=== PATIENT | female | born 1990 | race Caucasian/White ===

== ENCOUNTER 2025-04-28 10:13 | Outpatient (CLI) | payer BC, SELFPAY ==
--- OUTSIDE RECORDS SUMMARY | 2025-04-28 10:45 | XMS_ITS | Clinical Summary ---
Author Organization [facility] Address [address] [place] [address] Care Team Providers Care Nipping Machine Operator Name Role Phone Unavailable Primary Care Provider Unavailabl e Source Comments [facility],non-owned Affiliates and Associated Physician Practices is amultiple site organization consisting of ambulatory clinics and hospital sitesin [place], [place], [place] and [place]. This disclosure is being madepursuant to the Care Everywhere program and may not contain all information available regarding this patient. Last updated 18.[facility] Allergies No known active allergies Encounters Date Type Department Care Team Description 04/11/2025 11:15 AM CDT - 04/11/2025 11:59 PM CDT Hospital Encounter [facility] [address] [place] [id number] Alexa Tran MD Discharge Disposition: Home or Self Care 03/14/2025 11:15 AM CDT - 03/14/2025 11:59 PM CDT Hospital Encounter [facility] [address] [place] [id number] Ayesha Mcclure MD Discharge Disposition: Home or Self Care 02/14/2025 9:45 AM CDT - 02/14/2025 11:59 PM CDT Hospital Encounter [facility] [address] [place] [id number] Layla Zamora MD DIVORCE MEDIATOR Discharge Disposition: Home or Self Care from Last 3 Months Social History Tobacco Use Types Packs/Day Years Used Date Smoking Tobacco: Never Assessed Estimated Date of Delivery Comme nts Yes 07/02/2025 Based on last me nstrual period of 09/25/2024 Sex and Gender Information Value Date Recorded Sex Assigned at Not on file Legal Sex Female 11:03 AM CDT Gender Identity Not on file Sexual Orientation Not on file Plan of Treatment Health Maintenance Due Date Last Done Comments HIV SCREENING 2005 HEPATITIS C SCREENING 04/13/2008 DTAP/TDAP/TD VACCINES (1 - Tdap) 2009 HEPATITIS B VACCINE (1 of 3 - 19+ 3-dose series) 2009 PAP SMEAR 2011 HPV VACCINE (1 - 3-dose SCDM series) 2017 COVID-19 VACCINE ( - 2023-2 5 season) 2024 DEPRESSION SCREENING 08/25/2024 OB-ONE HOUR GLUCOSE 03/26/2025 OB-TDAP CURRENT 04/02/20252021, 10/03/2013 OB-RHOGAM INJECTION 04/09/2025 INFLUENZA VACCINE (#1) 2025 Respiratory Syncytial Virus (RSV) Vaccine Pt: or over 60 yrs (1 - Risk 1-dose series) 05/07/2025 ZOSTER VACCINE (1 of 2) 2040 HIB VACCINE Aged Out No longer eligi ble based on patient's age to complete this topic MENINGOCOCCAL (Group B) VACCINE SHARED DECISION-MAKING Aged Out No longer eligible based on patient's age to complete this topic MENINGOCOCCAL GROUPS A/C/Y/W VACCINE Aged Out No longer eligible b ased on patient's age to complete this topic PNEUMOCOCCAL VACCINE Aged Out No long er eligible based on patient's age to complete this topic Procedures Procedure Name Priority Date/Time Associated Diagnosis Comments SONOGRAM - COMPLETE Routine 04/11/2025 1 1:26 AM CDT Fourth (HCC) 28 weeks gestation of (HCC) Encounter for follow-up ultrasound of anatomy ([facility]) Encounter for ultrasound to assess growth ([facility]) SONOGRAM - COMPLETE Routine 03/14/2025 1 1:25 AM CDT Fourth (HCC) 24 weeks gestation of (HCC) Encounter for follow-up ultrasound of anatomy (HCC) Encounter for ultrasound to assess growth (HCC) SONOGRAM - COMPLETE Routine 02/14/2025 9 :52 AM CDT Encounter for anatomic survey (HCC) with 20 completed weeks gestation (HCC) Fourth (HCC) from Last 3 Months Results * Sonogram - Complete (04/11/2025 11:26 AM CDT) Only the most recent of3 resultswithin the time period is included. Linked Results Indication ======== Screening Follow-Up Incomplete anatomic survey Advanced maternal age (AMA), multigravida At time of delivery History ====== OB History 4. Para 3 Maternal Assessment Physical Exam Height 173 cm, 5 ft 8 in. Weight 76 kg, 167 lb. Initial weight 66 kg, 146 lb. BMI 25.39 kg/m . Initial BMI 22.20 kg/m . Weight gain 10 kg, 21 lb Method ====== Transabdominal ultrasound. View: Sufficient ========= Teixeira . Number of fetuses: 1 Dating ====== Date Details Gest. age ELLA LMP 09/25/2024 28 w + 2 d 07/02/2025 Stated ELLA 28 w + 2 d 07/02/2025 U/S 04/11/2025 based upon AC, BPD, Femur, HC 29 w + 4 d 06/23/2025 Assigned dating based on the LMP, selected on 02/14/2025 28 w + 2 d 07/02/2025 General Evaluation Cardiac activity present. FHR 145 bpm. Presentation: cephalic Placenta: Placental site: posterior Umbilical cord: 3-vessel cord and normal placental cord insertion site were documented previously Amniotic fluid: Amount of AF: normal. CHET 16.8 cm. Q1 4.8 cm, Q2 4.2 cm, Q3 3.5 cm, Q4 4.4 cm Biometry BPD 74.5 mm 29w 6d 85% Hadlock HC 276.1 mm 30w 1d 77% Hadlock AC 253.7 mm 29w 4d 80% Hadlock Femur 53.7 mm 28w 3d 40% Hadlock Humerus 50.1 mm 29w 2d 74% Bertrand HC / AC 1.09 Weight Calculation: EFW 1,371 g 75% Hadlock EFW (lb,oz) 3 lb 0 oz EFW by Hadlock (HC-AC-FL) Growth Overview Exam date GA BPD (mm) HC (mm) AC (mm) FL (mm) HL (mm) EFW (g) 02/14/2025 20w 2d 49.2 74% 185.1 68% 157.7 65% 34.1 58% 32.9 80% 380 74% 03/14/2025 24w 2d 63.2 85% 234.1 74% 205.7 69% 42.5 25% 41.1 59% 729 61% 04/11/2025 28w 2d 74.5 85% 276.1 77% 253.7 80% 53.7 40% 50.1 74% 1371 75% Anatomy The following structures appear normal: Heart / Thorax 4-chamber view. LVOT view. Interventricular septum. Abdomen Cord insertion. Stomach. Kidneys. Bladder. The following structures were documented previously: Head / Neck Cranium. Lateral ventricles. Choroid plexus. Midline falx. Cavum septi pellucidi. Cerebellum. Cisterna magna. Thalami. Nuchal fold. Face Lips. Profile. Nose. Nasal bone. Orbits. Heart / Thorax RVOT view. 3-vessel view. 7-hivzcz-pnbpqdp view. Situs. Aortic arch view. Bicaval view. Ductal arch view. Great vessels. Right lung. Left lung. Diaphragm. Abdomen Bowel. Genitals. Spine Cervical spine. Thoracic spine. Lumbar spine. Sacral spine. Extremities / Skeleton Arms. Hands. Legs. Feet. sex: female. Impression ========= 1) Teixeira gestation, 28w2d 2) Biometry is consistent with appropriate growth 3) The amniotic fluid volume is within normal limits 4) No abnormalities have been detected on the, now complete, anatomic survey Comment ======== ultrasound alone cannot detect all structural, genetic, or functional , placental, or maternal abnormalities Follow-up ======== Follow-up ultrasound only if clinically indicated Coding ====== Diagnoses O09.523: Supervision of elderly multigravida Z36.2: Encounter for other screening follow-up Procedures 76987: US Preg [facility] Anatom[facility] Region Laterality Modality Other 04/11/2025 11:2 6 AM CDT Edna Rodriguez MD [facility] ORDERABLES Edited Result - Final from Last 3 Months Insurance [facility]
--- OUTSIDE RECORDS SUMMARY | 2025-04-28 10:45 | XMS_ITS | Clinical Summary ---
Author Organization [facility] at the [facility] Address [address] [place] [address] Care Team Providers Care Import Customs Clearing Agent Name Role Phone No, Physician Primary Care Provider [phone] Allergies Active Allergy Reactions Criticality Noted Date Comments Cat Dander Other (See comments) Low 03/29/2022 Dog Dander Other (See comments) Low 03/29/2022 House Dust Other (See comments) Low 03/29/2022 Mold Other (See comments) Low 03/29/2022 Medications vit 98-zglx-nxraa-d quintana 27mg iron- 800 mcg-250 mg capsule Take by mouth Active docusate sodium (COLACE) 100 mg capsuleIndicati ons:constipatio n,Stool Softener Take 1 capsule (100 mg total) by mouth 2 (two) times a day 30 capsule 1 05/05/2022 Active ibuprofen (ADVIL,MOTRIN) 600 mg tabletIndicatio ns:Pain Take 1 tablet (600 mg total) by mouth every 6 (six) hours as needed for pain 30 tablet 1 05/05/2022 Active acetaminophen (TylenoL) 325 mg tablet Take 2 tablets (650 mg total) by mouth every 6 (six) hours as needed for pain 30 tablet 1 05/05/2022 Active sertraline (ZOLOFT) 25 mg tablet Take 1 tablet (25 mg total) by mouth daily 30 tablet 2 05/13/2023 Active Active Problems Problem Noted Date Diagnosed Date care following vaginal delivery 05/04 Overview (05/05/2022): 05/04/22, PPD#1 (BD): Hx of depression - on zoloft 25mg daily; mood currently stable VSS - Anemia: QBL: Recent Labs Lab Units 05/04/22 0437 HEMOGLOBIN g/dL 10.3* HEMATOCRIT % 29.7* ; Currently asymptomatic. On Iron therapy. Tolerating PO. Voiding spontaneously. Ambulating. Pain: Controlled with PO pain medications Fundus firm Breast Feeding Baby doing well - DVT Prophylaxis: SCD's in place; Encourage early ambulation Disposition: Continue routine care 05/05/22, PPD#2 (BD): Hx of depression - started on zoloft 25mg daily; mood currently stable VSS - Anemia: QBL: Recent Labs Lab Units 05/04/22 0437 HEMOGLOBIN g/dL 10.3* HEMATOCRIT % 29.7* ; Currently asymptomatic. On Iron therapy. Tolerating PO. Voiding spontaneously. Ambulating. Pain: Controlled with PO pain medications Fundus firm Breast Feeding Baby doing well - DVT Prophylaxis: SCD's in place; Encourage early ambulation Disposition: Continue routine care, anticipate D/C home today Normal labor and delivery 05/03/2022 Overview (05/05/2022): Delivered shortly after admission, see delivery note. GBS +, no time for prophylaxis Post depression 05/03/2022 Positive GBS test 04/15/2022 Supervision of other normal , antepartu m 02/14/2022 History of alcohol abuse 02/14/2022 Immunizations Immunization Administration Dates Next Due Tdap 02/27/2022 Medical History Medical History Date Comments HPV (human papilloma virus) infection Abnormal Pap smear of cervix Asthma Post depression Family History Medical History Relation Name Comments Breast cancer Mother's Sister Ovarian cancer Neg Hx Uterine cancer Neg Hx Relation Name Status Comments Mother Alive Mother's Sister Social History Tobacco Use Types Packs/Day Years Used Date Smoking Tobacco: Never Tobacco Cessation:Counseling Given: Not Answered AUDIT-C Answer Date Recorded Q1: How often do you have a drink containing alc ohol? Never 05/03/2022 Average Number of Drinks Not on file 022 Frequency of Binge Drinking Not on file 04/2022 [place] Depression Scale Answer Date Recorded [place] Depression Scale Total 2 05/04/2022 The thought of harming myself has occurred to me . Never 05/04/2022 Comments No Sex and Gender Information Value Date Recorded Sex Assigned at Not on file Legal Sex Female 9:21 AM CDT Gender Identity Not on file Sexual Orientation Not on file Obstetrics History Para Term AB IAB SAB Ectopic Multiple Livin g Live Births 3 3 3 0 3 3 Date Outcome GA Total Labor Labor/2nd/3rd Weight Sex Type Anes PTL Adenike A1 A5 Name Clin 2013 Term 38w 4d 3.062 kg (6 lb 12 oz) F Vag-S pont Epidur al N Livin g Complications:None Delivery Location:[facility] 2015 Term 38w 5d 3.572 kg (7 lb 14 oz) F Vag-S pont Epidur al N Livin g Complications:None Delivery Location:[facility] 2021 Term 38w 5d 3h 35m 3h 05m/0h 23m/0h 07m 3.37 kg (7 lb 6.9 oz) F Vag-S pont None N Livin g 8 9 JOY ,GIRL LILLIAM EA Obernu efleida n, Alicia N., CNM Complications:Precipitous La bor (<3 hours) Delivery Location:[facility] ([facility]) Last Filed Vital Signs Vital Sign Reading Time Taken Comments Blood Pressure 121/69 05/05/2022 7:35 AM CDT Pulse 63 05/05/2022 7:35 AM CDT Temperature 36.6 C (97.9 F) 05/05/2022 7:35 AM CDT Respiratory Rate 18 05/05/2022 4:49 AM CDT Oxygen Saturation 97% 05/05/2022 7:35 AM CDT Inhaled Oxygen Concentration - - Weight 81.6 kg (180 lb) 05/02/2022 9:14 AM CDT Height 170.2 cm (5' 7.01) 05/02/2022 9:14 AM CD T Body Mass Index 28.19 05/02/2022 9:14 AM CDT Plan of Treatment Health Maintenance Due Date Last Done Comments Cervical Cancer Screening 1990 Hepatitis C Screening 1990 Varicella Vaccines (1 of 2 - 13+ 2-dose series) 2003 Hepatitis B Screening 2008 Regular Well Visit/Exam 18-64 2008 HPV Vaccines (1 - 3-dose SCD M series) 2017 Depression Screening 05/04/2023 05/04/2022 Influenza Vaccine (#1) 2025 DTaP/Tdap/Td Vaccine (2 - Td or Tdap) 02/28/2032 02/27/2022 Pneumococcal vaccine <65 Aged Out No longer eligible based on patient's age to complete this topic Insurance [employer] [place] [employer] [place] Advance Directives For more information, please contact: [phone] * Full Code (Latest Code Status on File) Date Activated Date Inactivated Comments 05/03/2022 10:29 AM 05/05/2022 3:42 PM * Full Code Date Activated Date Inactivated Comments 05/03/2022 8:11 AM 05/03/2022 10:29 AM Full CPR in c ase of cardiopulmonary arrest Care Teams Import Customs Clearing Agent Relationship Specialty Start Date End Date No, Physician PCP - General 01/14/22
[2025-04-28 12:22] LABS: Hematocrit 30.9 % (37.0-47.0); Hemoglobin 10.6 g/dL (12.0-15.0); Mean Corpuscular HGB Conc 34.3 g/dl (32-36); Mean Corpuscular Hemoglobin 30.7 pg (26-34); Mean Corpuscular Volume 89.6 fl (80-100); Platelet Count Result 236 k/mm3 (150-375); Red Blood Count 3.45 M/mm3 (4.2-5.4); White Blood Count 7.0 K/mm3 (4.5-10.0)
[2025-04-28 12:46] LABS: Glucose 1 Hour PP 50gm Dose 121 mg/dL
[2025-04-28 13:15] LABS: Syphilis IgG/IgM Antibody Non-Reactive (Nonreactive)
[2025-04-28 13:27] LABS: HIV 1/2 Ab P24 Ag Result Negative (Negative)
== END 2025-04-28 10:14 | disposition home or self-care (01) ==
LOC: ANHLAB 10:16
PROVIDERS: PCP Physician Assistant; Visit Provider Student in an Organized Health Care Education/Training Program
DX: Z34.90 Encounter for supervision of normal pregnancy, unspecified, unspecified trimester (principal); Z3A.00 Weeks of gestation of pregnancy not specified
CPT/HCPCS: 36415; 82947; 85027; 86593; 86703; G0432

== ENCOUNTER 2025-06-24 10:22 | Inpatient (IN) | payer BC, SELFPAY ==
[2025-06-24] VITALS (45 sets, daily range): BP systolic 108–138; BP diastolic 62–98; PULSE 62–148; RESP 16–18; TEMP 36.7–37.2; O2SAT 88–100; BMI 28.6
--- OUTSIDE RECORDS SUMMARY | 2025-06-24 11:05 | XMS_ITS | Clinical Summary ---
Author Organization [facility] at the [facility] Address [address] [place] [address] Care Team Providers Care Entry Level Web Developer Name Role Phone No, Physician Primary Care Provider [phone] Allergies Active Allergy Reactions Criticality Noted Date Comments Cat Dander Other (See comments) Low 03/29/2022 Dog Dander Other (See comments) Low 03/29/2022 House Dust Other (See comments) Low 03/29/2022 Mold Other (See comments) Low 03/29/2022 Medications vit 83-kwiq-wjppg-d quintana 27mg iron- 800 mcg-250 mg capsule [...] of Binge Drinking Not on file 04/2022 [place] Depression Scale Answer Date Recorded [place] Depression Scale Total 2 05/04/2022 The thought [...] Epidur al N Livin g Complications:None Delivery Location:[facility] 2015 Term 38w 5d 3.572 kg (7 lb 14 oz) F Vag-S pont Epidur al N Livin g Complications:None Delivery Location:[facility] 2021 Term 38w 5d 3h 35m 3h 05m/0h 23m/0h 07m 3.37 kg (7 lb 6.9 oz) F Vag-S pont None N Livin g 8 9 JOY ,GOGO boone n, Alicia Kinney, CNM Complications:Precipitous La bor (<3 hours) Delivery Location:[facility] ([facility]) Last Filed Vital Signs Vital [...] 05/02/2022 9:14 AM CDT Plan of Treatment Not on file Insurance [employer] [place] [employer] [place] Advance Directives For more information, please contact: [phone] * Full Code (Latest Code Status on File) Date Activated Date Inactivated Comments 05/03/2022 10:29 AM 05/05/2022 3:42 PM * Full Code Date Activated Date Inactivated Comments 05/03/2022 8:11 AM 05/03/2022 10:29 AM Full CPR in c ase of cardiopulmonary arrest Care Teams Entry Level Web Developer Relationship Specialty Start Date End Date No, Physician PCP - General 01/14/22
--- OUTSIDE RECORDS SUMMARY | 2025-06-24 11:05 | XMS_ITS | Data Portability ---
Author Organization [facility] Pedro Douglas Address [address] [place] [address] Care Team Providers Care Target Trimmer Name Role Phone NELGARTH HAGAN Primary Care Provider Assessment No assessment recorded. Plan of Treatment Reminders Order Date Submit Date Provider Last Modified By Organization Details Last Modified Time Details Appointments None recorded. Lab None recorded. Referral None recorded. Procedures None recorded. Surgeries None recorded. Imaging None recorded. Medication Orders sertraline 25 mg tablet 2023 024 [facility] #[id number], [address] [place], [address], 12:26:30 Patient TargetsNo targets recorded. Patient Instructions Encounter Date Encounter Id Patient Instructions Last Modified By Organization Details Last Modified Time 12/02/2023 [id number] depression after childbirth: care instructions jnanney Not available 12/02/2023 12:26:26 stress in parent s of infants: care instructions jnanney Not available 12/02/2023 12:26:26 Reason for Referral None Reported. Results Created Date Observation Date Name Description Value Unit Range Abnormal Flag Note LastModifiedBy Organization Detail LastModifiedTime Result Notes None recorded. Problems No Known Problems Medical Equipment None Reported. Allergies No known drug allergies Medications Name Sig Start Date Stop Date Status Note LastModified by Organization Details LastModified Time sertraline 25 mg tablet TAKE 1 TABLET BY MOUTH EVERY DAY 025 active Not Available Not Available Not Avai lable Vitals Date Recorded Body weight Body mass index (BMI) Body height Systolic And Diastolic Provider Name and Address Organization Details Last Updated DateTime 12/02/2023 18848.81 g 24.5 kg/m2 170.18 cm 96/68 mm[Hg] Sarah Ayon [place] [facility] 12/02/2023 12:16:06 Date Recorded Body height Body mass index (BMI) Body weight Oxygen saturation Oxygen saturation in Arterial blood by Pulse oximetry Heart rate Systolic And Diastolic Provider Name and Address Organization Details Last Updated DateTime 170.18 cm 23.8 kg/m2 16497.0 4 g 99 % 99 % 81 /min 118/68 mm[Hg] Sarah Ayon MA [facility] 11:04:28 Social History Question Answer Notes LastModified by Organizat ion Details LastModified Time Tobacco Smoking Status Never Smoker Sarah Ayon MA [facility], [facility] 12/02/2023 12:12:46 Are You Blind Or Do You Have Difficulty Seeing? No Information not available 12/02/2023 What Is Your Level Of Caffeine Consumption? Occasional Information not available 12/02/2023 Are You Deaf Or Do You Have Serious Difficulty Hearing? No Information not available 12/02/2023 What Type Of Diet Are You Following? REGULAR Information not available 12/02/2023 What Was The Date Of Your Most Recent Tobacco Screening? 12/16/2023 Information not available 12/16/2023 How Many Children Do You Have? 3 Information not available 12/02/2023 What Is Your Relationship Status? Information not available 12/02/2023 Do You Use Your Seat Belt Or Car Seat Routinely? Yes Information not available 12/02/2023 Do You Have Smoke And Carbon Monoxide Detectors In Your Home? Yes Information not available 12/02/2023 Are You Passively Exposed To Smoke? No Information no t available 12/02/2023 Do You Use Sunscreen Routinely? Yes Information not available 12/02/2023 Has Tobacco Cessation Counseling Been Provided? No Information not available 12/02/2023 Sex: Female Functional Status Question Answer Note LastModified by Organizat ion Details LastModified Time Do you use any illicit or recreational drugs? No Information not available 12/02/2023 Do you or have you ever used any other forms of tobacco or nicotine? No Information not available 12/02/2023 What is your level of alcohol consumption? None Information not available 12/02/2023 Are you currently employed? No Stay at home Mom Information not available 12/02/2023 What is your exercise level? Occasional Information not available 12/02/2023 Mental Status Question Answer Note LastModified by Organization D etails LastModified Time Do you feel stressed (tense, restless, nervous, or anxious, or unable to sleep at night)? [id number] Information not available 12/02/2023 Family History Nothing Reported. Medical History Condition Response Coronary Artery Disease N Other N Atrial Fibrillation N High Blood Pressure N Thyroid Problems N Kidney or Bladder Problems N Depression N COPD N Blood Clots N GI Problems N Skin Problems N Eating Disorder N Anemia N Heart Attack (PA) N Diabetes N Anxiety Disorder N Muscle, Joint, or Bone Problems N Seizures/Epilepsy N Arthritis N Acid Reflux (GERD) N Cancer N Stroke N Allergies N Asthma N ADHD N Substance Abuse N High Cholesterol N Hepatitis N Liver Disease N Schizophrenia N Headaches N Osteoporosis N Heart Failure N Gynecological History Statement/Question Response Date of LMP 11/01/2023 Obstetrics History GPAL:G 3 P 0 0 0 0 Immunizations Vaccine Type Date Status Note Provider Nam e and Address Organization Details Recorded Time Tdap 02/27/2022 T[place], [place] 2025 12:35:19 Tdap 04/16/2025 T[place] 2025 12:36:47 Respiratory syncytial virus (RSV) MAB, unspecified 06/08/2025 TORI [place] 06/15/2025 09:46:00 Past Encounters Encounter ID Performer Location Encounter Start Date Encounter Closed Date Diagnosis/Indication Diagnosis SNOMED-CT Code Diagnosis ICD10 Code Diagnosis IMO Codes Diagnosis Note [id number] Garth Bauer PA-C [facility] [address] [place] [address] 12/02/2023 12:02:39 12/11/2023 16:19:53 depression 79351148 F53.0 [id number] Kiran Arevalo MD [facility] [address] [place] [address] 12/16/2023 10:49:06 12/25/2023 11:37:47 Mixed anxiety and depressive disorder 032154543 F41.8 follow up 6 month Health Concerns Section Related Observation LastModified by Organization Detai ls LastModified Time None Recorded Concern Status LastModified by Organization Details LastModified Time None Recorded Advance Directives Directive None Recorded Payers Insurance Date Sequence Insurance Name Policy Number Policy Hanna Covered Member ID Hanna Member ID Guarantor Name 06/11/2024 1 [place] [id number] Ethan Retana Dixon [id number] Radha Dixon Notes Date Note Type Note Provider Name and Address Organization Details Recorded Time 12/02/2023 text/html ROS as noted in the HPI new patient..hx of post ..was on meds decided to try without...not doing great...sertralin e...describes extremes...just moved in from [place]... Garth Bauer PA-C Attn: [address] [place], [address], [facility] 12/02/2023 12:27:48 12/16/2023 text/html ROS as noted in the HPI sleeping well feels great depression resolving Garth Bauer PA-C Attn: [address] [place], [address], [facility] 12/16/2023 11:33:36 OBGyn Episode Ob Episode Information Episode Created Date Number of Fetuses Patient Bloodtype Patient rh Status Prepregnancy Weight lbs Domestic Partner Domestic Partner Phone Father Name Metal Spinner Status 12/02/19 24 1 CLOSED Fetus Data First Name Last Name Admitted to NICU Weight (g) Sex Living Outcome Pediatric Complications Fetus ID Race Codes Race Delivery Type Full Term [id number] Charly Calculation Initial Charly Date Initial Exam Date Initial Exam Provider Initial Ultrasound Date Last Menstrual Period Date Ultra Sound Weeks Gestation 0 Eighteen To Twenty Week Charly Update Ultra Sound Date Fundal Height At Umbil Quickening Date Ultra Sound Latest Weeks Gestation Final Charly Confirmed By Final Charly Confirmed Date Final Charly Date Ultra Sound Latest Days Gestation 0 0 Menstrual History Last Menstrual Date Menses Monthly On Bcp Conception Prior Menses Frequency Hcg Plus Date Menarche Onset Age Delivery Information Delivery Date Delivery Type Labor Anesthesia Weeks Gestation Incision Type Labor Labor Length Hrs Delivered By Post Complications Tubal Sterilization Discharge Date Comments 4 Discharge Information Feeding Method Contraceptive Method Maternal HG B and HCT Levels Ob Episode Information Episode Created Date Number of Fetuses Patient Bloodtype Patient rh Status Prepregnancy Weight lbs Domestic Partner Domestic Partner Phone Father Name Metal Spinner Status 12/02/19 24 1 CLOSED Fetus Data First Name Last Name Admitted to NICU Weight (g) Sex Living Outcome Pediatric Complications Fetus ID Race Codes Race Delivery Type Full Term [id number] Charly Calculation Initial Charly Date Initial Exam Date Initial Exam Provider Initial Ultrasound Date Last Menstrual Period Date Ultra Sound Weeks Gestation 0 Eighteen To Twenty Week Charly Update Ultra Sound Date Fundal Height At Umbil Quickening Date Ultra Sound Latest Weeks Gestation Final Charly Confirmed By Final Charly Confirmed Date Final Charly Date Ultra Sound Latest Days Gestation 0 0 Menstrual History Last Menstrual Date Menses Monthly On Bcp Conception Prior Menses Frequency Hcg Plus Date Menarche Onset Age Delivery Information Delivery Date Delivery Type Labor Anesthesia Weeks Gestation Incision Type Labor Labor Length Hrs Delivered By Post Complications Tubal Sterilization Discharge Date Comments 2 Discharge Information Feeding Method Contraceptive Method Maternal HG B and HCT Levels Ob Episode Information Episode Created Date Number of Fetuses Patient Bloodtype Patient rh Status Prepregnancy Weight lbs Domestic Partner Domestic Partner Phone Father Name Metal Spinner Status 12/02/19 24 1 CLOSED Fetus Data First Name Last Name Admitted to NICU Weight (g) Sex Living Outcome Pediatric Complications Fetus ID Race Codes Race Delivery Type Full Term [id number] Charly Calculation Initial Charly Date Initial Exam Date Initial Exam Provider Initial Ultrasound Date Last Menstrual Period Date Ultra Sound Weeks Gestation 0 Eighteen To Twenty Week Charly Update Ultra Sound Date Fundal Height At Umbil Quickening Date Ultra Sound Latest Weeks Gestation Final Charly Confirmed By Final Charly Confirmed Date Final Charly Date Ultra Sound Latest Days Gestation 0 0 Menstrual History Last Menstrual Date Menses Monthly On Bcp Conception Prior Menses Frequency Hcg Plus Date Menarche Onset Age Delivery Information Delivery Date Delivery Type Labor Anesthesia Weeks Gestation Incision Type Labor Labor Length Hrs Delivered By Post Complications Tubal Sterilization Discharge Date Comments 6 Discharge Information Feeding Method Contraceptive Method Maternal HG B and HCT Levels
[2025-06-24 11:08] LABS: Hematocrit 32.5 % (37.0-47.0); Hemoglobin 11.4 g/dL (12.0-15.0); Immature Granulocyte Percent A 0.7 % (0-0.5); Lymphocytes Absolute Auto 1.26 K/mm3 (0.9-3.2); Mean Corpuscular HGB Conc 35.1 g/dl (32-36); Mean Corpuscular Hemoglobin 30.8 pg (26-34); Mean Corpuscular Volume 87.8 fl (80-100); Nucleated Red Blood Cells Absolute Auto 0.000 K/mm3 (0.0-0.012); Nucleated Red Blood Cells Perc 0.0 % (0.0-0.2); Platelet Count Result 232 k/mm3 (150-375); Red Blood Count 3.70 M/mm3 (4.2-5.4); White Blood Count 5.9 K/mm3 (4.5-10.0)
--- NOTE | 2025-06-24 11:27 | LDADM ---
This patient, Radha Metcalf, was admitted to Labor/Delivery/Recovery 107 on 06/24/25 at 10:22. Plans for labor, pain management and were discussed with patient. Patient/family oriented to hospital policies and general routines including ID bracelet, bed and alarms, visiting hours, pain management, procedures, bathroom and other care routines, personal items, smoking policy, room service/diet and guest tray routines, security routines, and visiting hours. Patient/Family are encouraged to report perceived risks to care and to ask questions if they do not understand what they are told or what they should do. See OBIX for further documentation.
[2025-06-24] MEDS: OXYTOCIN 30 UNITS/NS 500 ML 30 UNITS/500 ML BAG 999 UNITS IV CONT (12:30)
--- NOTE | 2025-06-24 12:38 | WPDHPUPDATE1 ---
History and Physical Update Update Date/Time: 06/24/25 12:38 35 yo who presents at 38w6d after SROM and in labor. History and Physical has been reviewed, including an updated exam of the patient. There are NO changes in the patient's condition. Risks, benefits, and alternatives have been discussed and questions answered. Patient agrees to proceed with procedure. A/P: admit to L&D routine admission orders Rh+ GBS neg continuous EFM cvx 6cm expectant managemetn
--- NOTE | 2025-06-24 12:40 | PM.OBPRVD ---
OB - Vaginal Delivery Note Procedure Delivery date: 06/24/25 Induction method: None Delivery monitor: External FHT and External Uterine Route of delivery: Episiotomy description: None Laceration Description: None Specimen: No Quantitative Blood Loss (ml): 200 Anesthesia type: None Disposition: Floor Complications: No immediate complications Narrative: Patient pushed in hands and knees position for a spontaneous vaginal delivery. The fetus was delivered atraumatically. The cord was clamped and cut after 1 minute of life. The cord was double clamped and cut and a segment of cord was collected for cord gases. Cord blood was collected for blood type and Coomb's testing. The placenta delivered spontaneously and was noted to be intact. The perineum was inspected and noted to be intact. The fundus was noted to be firm and good hemostasis was noted. The mom and infant were stable in the delivery room. Baby Date of : 06/24/25 Time of : 12:20 Gestational Age by Date: 38 Infant gender: Ambiguous Weight (pounds): 8 Weight (ounces): 9 presentation: vertex position: Right Occiput Anterior Placenta delivery description: Spontaneous Cord Vessel Description: 3 Vessels score one minute: 8 score five minutes: 9
[2025-06-24] MEDS: OXYTOCIN 30 UNITS/NS 500 ML 30 UNITS/500 ML BAG 125 UNITS IV CONT (13:02)
[2025-06-24 13:05] LABS: Syphilis IgG/IgM Antibody Non-Reactive (Nonreactive)
[2025-06-24] MEDS: IBUPROFEN 600 MG TABLET PO (13:22)
--- NOTE | 2025-06-24 15:00 | OBPPTRN ---
Patient transferred to post room # 291 via wheelchair. Support person present. Oriented to unit, room, information board, rooming in, admission packet and security measures. Patient verbalizes understanding.
[2025-06-25] MEDS: IBUPROFEN 600 MG TABLET PO (00:15)
[2025-06-25 04:15] VITALS: BP 122/77; PULSE 80; RESP 18; TEMP 36.6; O2SAT 99
[2025-06-25 05:06] LABS: Hematocrit 28.4 % (37.0-47.0); Hemoglobin 9.9 g/dL (12.0-15.0)
[2025-06-25 08:50] VITALS: BP 110/69; PULSE 73; RESP 16; TEMP 36.9; O2SAT 97
[2025-06-25] MEDS: SERTRALINE HCL 25 MG TABLET PO (08:54)
[2025-06-25] MEDS: MULTIVIT/MIN/PREN/FOL AC/IRON TABLET 1 TAB PO (08:54)
[2025-06-25] MEDS: DOCUSATE SODIUM 100 MG CAPSULE PO (08:55)
--- NOTE | 2025-06-25 09:06 | P.PNOB_ITS ---
OB - PN: Subj Subjective Date/time seen: 06/25/25 09:06 Patient comments: pain well controlled, tolerating diet and other (Decreasing lochia.) baby status: doing well and nursing well [place] feeding status: exclusively breast feeding OB - PN: Obj Data Labs 06/25/25 04:14 Labs: Laboratory Results - last 24 hr 06/24/25 06/25/25 10:50 04:14 WBC 5.9 RBC 3.70 L Hgb 11.4 L 9.9 L Hct 32.5 L 28.4 L MCV 87.8 MCH 30.8 MCHC 35.1 RDW 13.1 Plt Count 232 MPV 9.1 Immature Gran % (Auto) 0.7 H Neut % (Auto) 68.2 Lymph % (Auto) 21.5 [place] % (Auto) 7.0 Eos % (Auto) 1.9 Baso % (Auto) 0.7 Lymph # (Auto) 1.26 [place] # (Auto) 0.4 Eos # (Auto) 0.1 Baso # (Auto) 0.0 Abs Immat Gran (auto) 0.04 H Absolute Neuts (auto) 4.0 Absolute Nucleated RBC 0.000 Nucleated RBC % 0.0 Syphilis IgG/IgM Ab Non-reactive Blood Type A Positive Antibody Screen Negative OB - PN A/P Plan day: 1 Plan: discharge home Comments: Patient doing well. She requested discharge to home. Time Spent With Patient Time: Total time spent is greater than 50% in coordination of care (as documented) at patient's floor/unit and/or counseling patient: Exam 2 Psych: Affect: normal affect Other: Abd: fundus firm below umbilicus, nontender Perineum: healing Ext: nontender
--- NOTE | 2025-06-25 09:06 | P.DS_ITS ---
DS: Admitting Diagnosis Discharge Date June 25, 2025 Admitting Diagnosis spontaneous rupture membranes DS: Discharge Diagnosis Discharge Diagnosis (1) Vaginal delivery: Code(s): O80 - Encounter for full-term uncomplicated delivery Status: Acute OB - DS: Summary Hospital Course Hospital Course: she was admitted after confirmation of spontaneous rupture membranes. She had an uncomplicated vaginal delivery. She did well . Baby did well . She requested discharge home on day 1. OB Procedures : Ultrasound OB Procedures Intrapartum: Spontaneous Vag Delivery OB Procedures: : None Peripartum Data Infant Delivery Method: Natural Vaginal Laceration Description: None Episiotomy description: None complications: none Status at Discharge Functional status at discharge: independent ambulation Time Spent with Patient Time attestation: Total time spent providing and/or coordinating discharge services: Exam Const: General: cooperative Orientation/consciousness: oriented to person, oriented to place and oriented to time HENMT: Face/Nose/Sinus: Normal external nose present Eyes: General: appearance normal, both eyes and all related structures Resp: Effort & Inspection: normal respiratory effort GI: Inspection: normal to inspection Skin: General skin exam: normal color Neuro: General: oriented to person, oriented to place and oriented to time Extrem: General: normal to inspection and no calf tenderness Psych: Appearance: grossly normal Mental Status: mental status grossly normal DS: Data Data Completed and Pending Labs on day of discharge: Labs from last 24 hours 06/25/25 06/24/25 04:14 10:50 WBC 5.9 RBC 3.70 L Hgb 9.9 L 11.4 L Hct 28.4 L 32.5 L MCV 87.8 MCH 30.8 MCHC 35.1 RDW 13.1 Plt Count 232 MPV 9.1 Immature Gran % (Auto) 0.7 H Neut % (Auto) 68.2 Lymph % (Auto) 21.5 [place] % (Auto) 7.0 Eos % (Auto) 1.9 Baso % (Auto) 0.7 Lymph # (Auto) 1.26 [place] # (Auto) 0.4 Eos # (Auto) 0.1 Baso # (Auto) 0.0 Abs Immat Gran (auto) 0.04 H Absolute Neuts (auto) 4.0 Absolute Nucleated RBC 0.000 Nucleated RBC % 0.0 Syphilis IgG/IgM Ab Non-reactive Blood Type A Positive Antibody Screen Negative Discharge Plan Discharge Attending physician on discharge: Juan Ramirez Consulting providers: Michele Altamirano Discharging Clinician: Michele Altamirano Anticipated Discharge Date/Time: 06/25/25 11:34 Patient Disposition: Home Activity: may shower and pelvic rest Diet: regular Patient Instructions: Antibiotic Form Patient Language: Frisian Stand Alone Forms: General Discharge Information Follow-up/Referrals: Juan Ramirez MD [Physician, ENVIRONMENTAL MARKETING REPRESENTATIVE] - Call for Appointment Discharge Medications: Continued Classic 28 mg iron- 800 mcg tablet PO albuterol 90 mcg/actuation aerosol inhalation sertraline 50 mg tablet 25 mg PO DAILY Discontinued aspirin [Adult Low Dose Aspirin] 81 mg tablet,delayed release (DR/EC) 81 mg PO DAILY Date of admission: 06/24/25 10:22 Primary Care Provider: PHYSICIAN,AUTOMOTIVE PRODUCT SPECIALIST Admitting Provider: Juan Ramirez Attending physician on admission: Juan Rmairez Condition: Stable
--- NOTE | 2025-06-25 12:30 | PC.NURSE ---
Consulted with mother concerning needs and she shared her ability to independently latch infant. She has some nipple soreness and we reviewed obtaining the deepest latch possible. Baby is currently latched in a semi reclined position. Mom states that it feels a little sore but that baby has been nursing a lot. This is her 4th baby to breastfeed. Mother is feeding appropriately for growth of infant and understands stimulating to eat if needed. has had appropriate feedings in the last 24 hours meets the outcomes for weight, output, blood sugar and jaundice at this time. Reinforced understanding of milk production, transition of milk, signs of adequate intake, prevention/relief of engorgement, plugged ducts, mastitis, responsive watching for feeding cues, community resources and outpatient number, and when to call a provider using the resource of the feeding sheet along with the mom and baby guide. Mother voiced understanding of the information shared, is confident to continue effectively her at home, when to call for assistance, denies any additional assistance or education at this time. Reported to the Primary RN.
[2025-06-27 14:06] VITALS: BP 111/74; PULSE 76; RESP 18; TEMP 36.6; O2SAT 100
== END 2025-06-25 15:48 | disposition home or self-care (01) | DRG 807 ==
LOC: ANHOB2 06-25 11:35 → ANHLDR 06-27 12:46
PROVIDERS: Admitting Provider Student in an Organized Health Care Education/Training Program; Visit Provider Obstetrics & Gynecology
DX: O80 Encounter for full-term uncomplicated delivery (principal); Z37.0 Single live birth; Z3A.38 38 weeks gestation of pregnancy
CPT/HCPCS: 36415; 85014; 85018; 85025; 86593; 86850; 86900; 86901; A9270; J2590